=== PATIENT | female | born 2000 | race Two or more races ===

== ENCOUNTER 2025-05-05 22:11 | Observation (INO) | payer MEDICAID, OTHER ==
[~2025-05-05] VITALS: Ht 165.1 cm; Wt 79.4 kg
--- NOTE | 2025-05-05 22:37 | DVHDS2 ---
Physician Discharge Progress N Final Diagnosis: well being established Dehydration Operations or Procedures: Operations or Procedures S: 24yo IUP@28.3wks presents to OB triage with c/o DFM since 1100. Reports only drinking to 8 oz water bottles today. Denies UCs/LOF/VB/CANTU/vision changes/RUQ pain.\\ PNC with Dr. Roy at [facility], complicated by hypothyroidism, takes levothyroxine 75mcg daily. O: VSS NST reactive for GA PO hydrated A: 24yo IUP@28.3wks well being established Dehydration P: D/C home FKC/PTL precautions reviewed Dr. Canales consulted, agrees with POC. Condition on Discharge: Stable Disposition: Home Discharge Instructions: Diet: Regular Activity: No Restrictions, As Tolerated Medications: see med list Follow Up Care: Specialist: f/u with primary OB as scheduled Discharge Statement: "Patient was advised to return to the ER or call 911 if any headaches, dizziness, shortness of breath, chest pain, abdominal pain, bleeding, fevers, or worsening of medical condition. Patient was counseled about treatment plan, medications, possible side effects, patientverbalized understanding. All questions were answered to the best of my ability. This discharge took greater then 30 minutes in planning, reviewing documentation, counseling the patient, and discussing with other team members." Visit Coding OBGYN Date of Service: May 06, 2025 Billing Provider: ALVINO BECKMAN CNM LITIGATION CLAIM REPRESENTATIVE Common Visit Codes: 91831-[id number] OBS CARE (HIGH) LITIGATION CLAIM REPRESENTATIVE Procedure Codes: 10586-49- NON-STRESS TEST ALVINO BECKMAN CNM May 05, 2025 22:37
[2025-05-06] MEDS ORDERED: LEVO112T4 PO (00:09)
== END 2025-05-06 00:35 | disposition home or self-care (01) ==
LOC: LDRP 22:11
PROVIDERS: ADMIT Obstetrics & Gynecology; ATTEND Obstetrics & Gynecology
DX: O99.283 Endocrine, nutritional and metabolic diseases complicating pregnancy, third trimester (principal); E03.9 Hypothyroidism, unspecified; E86.0 Dehydration; Z3A.28 28 weeks gestation of pregnancy; Z79.899 Other long term (current) drug therapy
CPT/HCPCS: 59025; 81002; 94760; G0378